=== PATIENT | male | born 1985 | race Caucasian/White ===

== ENCOUNTER 2017-01-12 17:30 | Emergency (ER) | payer MEDICAID ==
[~2017-01-12] VITALS: Ht 172.7 cm; Wt 86.2 kg
[~2017-01-12 17:30] MED LIST: ACHD5005 PO; ALBU17AE3 IH; CLNZ.5T PO; CYCL10TA45 PO; DIAZ5TAB PO; HYDR-700; LEVO750T39 PO; MULT-35 PO; OXYC-12 PO; PALI156D; PALI9TAB4; SENN1TAB76 PO; SULF-222 PO; SULF1TAB35 PO; TEST200V21 IM; TRAM300T24 PO; TRAM50TA2 PO; TRM50T PO
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
[2017-01-12] MEDS ORDERED: OLANZapine 5 MG ODT (ZyPREXA ZYDIS) PO ONE (18:15)
--- NOTE | 2017-01-12 19:12 | Diagnostic Imaging Report ---
PROCEDURE: CT head without contrast. TECHNIQUE: Multiple contiguous axial images were obtained through the brain without the use of intravenous contrast. INDICATION: Headache. FINDINGS: There is no mass, shift of the midline or hemorrhage to suggest an acute intracranial abnormality. The ventricles are not abnormally dilated and stable in size when compared to the prior exam of 09/07/15. The bone windows show no evidence for a fracture or for a destructive lesion. The orbits and sinuses were not visualized in their entirety, but where visualized, there is no sign of an acute abnormality. IMPRESSION: 1. There is no evidence for an acute intracranial abnormality. When compared to the prior study, there has been no significant change. 2. If clinical concern regarding an underlying abnormality persists, then MRI would be recommended for further study. Dictated by: Dictated on workstation # [id number]
[2017-01-12 19:25] VITALS: BP 115/78
== END 2017-01-12 19:23 | disposition home or self-care (01) ==
LOC: EDUNIT# 17:30 → ER 17:32
DX: R51 Headache (principal); I10 Essential (primary) hypertension; F15.90 Other stimulant use, unspecified, uncomplicated; F17.210 Nicotine dependence, cigarettes, uncomplicated
CPT/HCPCS: 70450; 99282

== ENCOUNTER 2017-03-08 20:52 | Emergency (ER) | payer MEDICAID ==
[~2017-03-08] VITALS: Ht 172.7 cm; Wt 86.4 kg
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
[2017-03-08] MEDS ORDERED: ALPRAZolam 0.5 MG (XANAX) TAB PO SCH (21:15)
[2017-03-08] MEDS: RT-LEVALBUTEROL (XOPENEX) 1.25 MG/3 ML NEB NON-FORMULARY INH SCH ×2 (21:17→21:18)
--- NOTE | 2017-03-08 21:23 | Diagnostic Imaging Report ---
INDICATION: Shortness of breath. PA and lateral views of the chest were obtained. FINDINGS: The heart size, mediastinal configuration, and pulmonary vascularity are within normal limits. There is no pleural effusion, pneumothorax, or pneumonia. The osseous structures are unremarkable. IMPRESSION: No acute cardiopulmonary abnormality. Dictated by: Dictated on workstation # [id number]
[2017-03-08 21:44] VITALS: BP 132/90
== END 2017-03-08 21:44 | disposition home or self-care (01) ==
LOC: EDUNIT# 20:52 → ER 20:54
DX: R06.00 Dyspnea, unspecified (principal); I10 Essential (primary) hypertension; F20.9 Schizophrenia, unspecified; F17.210 Nicotine dependence, cigarettes, uncomplicated; Z79.899 Other long term (current) drug therapy
CPT/HCPCS: 71020; 94640; 99283

== ENCOUNTER 2017-06-12 16:54 | Emergency (ER) | payer MEDICAID ==
[~2017-06-12] VITALS: Ht 172.7 cm; Wt 90.7 kg
--- OUTSIDE RECORDS SUMMARY | 2017-06-12 16:58 | XMS REPORT ---
Author Author YVONNE AIKEN Organization [facility] Address [address] [place] [address] Care Team Providers Care Hand Filer Balance Wheel Name Role Phone YVONNE AIKEN Unavailable PROBLEMS Unknown Problems ALLERGIES Substance Reaction Event Type Date Status N.K.D.A. Unknown Non Drug Allergy Aug, Unknown SOCIAL HISTORY No smoking Hx information available PLAN OF CARE Activity Details Follow Up prn Reason: VITAL SIGNS Height 69 in 2016-09-21 Weight 189.2 lbs 2016-09-21 Temperature 98.6 degrees Fahrenheit 2016-09-21 Heart Rate 104 bpm 2016-09-21 Respiratory Rate 20 2016-09-21 BMI 27.94 kg/m2 2016-09-21 Blood pressure systolic 136 mmHg 2016-09-21 Blood pressure diastolic 84 mmHg 2016-09-21 MEDICATIONS Medication Instructions Dosage Frequency Start Date End Date Duration Status Cephalexin 500 MG Orally three times daily 1 capsule Aug,Sep 10 day(s) Active RESULTS No Results PROCEDURES Procedure Date Ordered Related Diagnosis Body Site ROCEPHIN 1 GM (IM) Sep 21, 2016 THER/PROPH/DIAG INJ, SC/IM Sep 21, 2016 Office Visit, Est Pt., Level 3 Sep 21, 2016 IMMUNIZATIONS Vaccine Route Administration Date Status ROCEPHIN 1 GM (IM) IM Intramuscular Sep 21, 2016 Administered
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
[2017-06-12] MEDS ORDERED: OLANZapine 5 MG ODT (ZyPREXA ZYDIS) PO ONE ×2 (17:15→18:15)
[2017-06-12 17:47] LABS: BILIRUBIN,URINE NEGATIVE (NEGATIVE); KETONES,URINE NEGATIVE (NEGATIVE); LEUKOCYTE ESTERASE ,URINE NEGATIVE (NEGATIVE); NITRITE,URINE NEGATIVE (NEGATIVE); PH,URINE 6 (5-9); PROTEIN,URINE 1+ (NEGATIVE); UROBILINOGEN,URINE NORMAL (NORMAL)
[2017-06-12 17:48] LABS: BASOPHILS # (AUTO) 0.1 10^3/uL (0.0-0.1); BASOPHILS % (AUTO) 1 % (0-10); EOSINOPHILS # (AUTO) 0.1 10^3/uL (0.0-0.3); EOSINOPHILS % (AUTO) 1 % (0-10); LYMPHOCYTES # (AUTO) 2.4 X 10^3 (1.0-4.0); LYMPHOCYTES % (AUTO) 24 % (12-44); MEAN CORPUSCULAR HEMOGLOBIN 30 PG (25-34); MEAN CORPUSCULAR HGB CONC 35 G/DL (32-36); MEAN CORPUSCULAR VOLUME 87 FL (80-99); MEAN PLATELET VOLUME 11.5 FL (7.4-10.4); MONOCYTES # (AUTO) 1.2 X 10^3 (0.0-1.0); MONOCYTES % (AUTO) 12 % (0-12); NEUTROPHILS # (AUTO) 6.3 X 10^3 (1.8-7.8); NEUTROPHILS % (AUTO) 62 % (42-75); PLATELET COUNT 289 10^3/uL (130-400); RED BLOOD COUNT 5.49 10^6/uL (4.35-5.85); RED CELL DISTRIBUTION WIDTH 13.4 % (10.0-14.5); WHITE BLOOD COUNT 10.2 10^3/uL (4.3-11.0)
[2017-06-12 18:31] LABS: ALANINE AMINOTRANSFERASE 20 U/L (0-55); ALBUMIN 4.4 GM/DL (3.2-4.5); ALCOHOL < 10 MG/DL (<10); ANION GAP 11 MMOL/L (5-14); ASPARTATE AMINO TRANSFERASE 13 U/L (5-34); BILIRUBIN,TOTAL 0.3 MG/DL (0.1-1.0); BLOOD UREA NITROGEN 7 MG/DL (7-18); BUN/CREATININE RATIO 6; CALCIUM 9.5 MG/DL (8.5-10.1); CARBON DIOXIDE 26 MMOL/L (21-32); CHLORIDE 103 MMOL/L (98-107); GFR ESTIMATED > 60; GLUCOSE 104 MG/DL (70-105); POTASSIUM 3.8 MMOL/L (3.6-5.0); SALICYLATE < 5.0 MG/DL (5.0-20.0); SODIUM 140 MMOL/L (135-145); TOTAL PROTEIN 7.7 GM/DL (6.4-8.2)
[2017-06-12 18:33] LABS: ACETAMINOPHEN < 10 UG/ML (10-30)
[2017-06-12 18:50] LABS: THYROID STIMULATING HORMONE 0.81 UIU/ML (0.35-4.94)
[2017-06-12 19:35] VITALS: BP 137/99
== END 2017-06-12 19:33 | disposition home or self-care (01) ==
LOC: EDUNIT# 16:54 → ER 16:55
DX: F15.10 Other stimulant abuse, uncomplicated (principal); F29 Unspecified psychosis not due to a substance or known physiological condition
CPT/HCPCS: 36415; 80053; 80306; 80320; 80329; 81000; 84443; 85025; 93005

== ENCOUNTER 2019-01-18 08:42 | Observation (INO) | payer MEDICAID, MEDICARE ==
[2019-01-18] VITALS (11 sets, daily range): BP systolic 96–150; BP diastolic 48–92
[~2019-01-18] VITALS: Ht 170.2 cm; Wt 79.4 kg
[2019-01-18] MEDS ORDERED: NS IV 1000 ML 1,000 ML IV ONE ×2 (09:09→10:16)
[2019-01-18] MEDS ORDERED: QUEtiapine 25 MG (SEROquel) TAB IMMEDIATE RELEASE PO SCH ×2 (09:15→13:00)
[2019-01-18 09:16] LABS: BASOPHILS % (AUTO) 0 % (0-10); EOSINOPHILS % (AUTO) 0 % (0-10); HEMATOCRIT 45 % (40-54); HEMOGLOBIN 16.2 G/DL (13.3-17.7); LYMPHOCYTES # (AUTO) 1.5 X 10^3 (1.0-4.0); LYMPHOCYTES % (AUTO) 7 % (12-44); MEAN CORPUSCULAR HEMOGLOBIN 30 PG (25-34); MEAN CORPUSCULAR HGB CONC 36 G/DL (32-36); MEAN CORPUSCULAR VOLUME 84 FL (80-99); MEAN PLATELET VOLUME 11.3 FL (7.4-10.4); MONOCYTES % (AUTO) 10 % (0-12); NEUTROPHILS % (AUTO) 83 % (42-75); PLATELET COUNT 236 10^3/uL (130-400); RED CELL DISTRIBUTION WIDTH 12.8 % (10.0-14.5); WHITE BLOOD COUNT 20.4 10^3/uL (4.3-11.0)
[2019-01-18 09:38] LABS: LYMPHOCYTES % (MANUAL) 9 %; MONOCYTES % (MANUAL) 10 %; NEUTROPHILS % (MANUAL) 81 %; RBC MORPH NORMAL
[2019-01-18 09:39] LABS: ACETAMINOPHEN < 10 UG/ML (10-30); ALANINE AMINOTRANSFERASE 41 U/L (0-55); ALBUMIN 4.9 GM/DL (3.2-4.5); ALKALINE PHOSPHATASE 84 U/L (40-136); BUN/CREATININE RATIO 20; CALCIUM 9.7 MG/DL (8.5-10.1); CARBON DIOXIDE 23 MMOL/L (21-32); CHLORIDE 103 MMOL/L (98-107); CREATINE KINASE 2222 U/L (30-200); CREATININE SERUM 1.02 MG/DL (0.60-1.30); GFR ESTIMATED > 60; GLUCOSE 168 MG/DL (70-105); MAGNESIUM 2.8 MG/DL (1.8-2.4); POTASSIUM 3.6 MMOL/L (3.6-5.0); SALICYLATE < 5.0 MG/DL (5.0-20.0); SODIUM 140 MMOL/L (135-145)
[2019-01-18 09:58] LABS: TSH (THYROID ANALYZER) 1.74 UIU/ML (0.35-4.94)
--- NOTE | 2019-01-18 10:20 | NUR ---
PT STATES HAS BEEN DRINKING POND WATER AND CLEAR FLUID IN DR PEPPER BOTTLE FOUND ON ROAD
--- NOTE | 2019-01-18 10:44 | Diagnostic Imaging Report ---
Indication: Rhabdomyolysis, elevated white blood cell count. Comparison: 03/08/2017 Technique: Single radiograph of the chest dated 01/18/2019. Findings: The cardiac silhouette is within normal limits in size. No significant pulmonary vascular congestion. The lungs are clear, focal pulmonary opacity. No pleural effusion. No pneumothorax. No acute osseous abnormality. Impression: Stable examination without acute cardiopulmonary abnormality. Dictated by: Dictated on workstation # [id number]
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
--- NOTE | 2019-01-18 11:24 | NUR ---
LUNCH TRAY ORDERED
[2019-01-18 11:47] LABS: BILIRUBIN,URINE NEGATIVE (NEGATIVE); CLARITY,URINE CLEAR; COLOR,URINE YELLOW; GLUCOSE, URINE (UA) 2+ (NEGATIVE); KETONES,URINE 3+ (NEGATIVE); LEUKOCYTE ESTERASE ,URINE NEGATIVE (NEGATIVE); NITRITE,URINE NEGATIVE (NEGATIVE); PH,URINE 6 (5-9); PROTEIN,URINE NEGATIVE (NEGATIVE); UROBILINOGEN,URINE NORMAL (NORMAL)
[2019-01-18 11:56] LABS: BACTERIA,URINE NEGATIVE /HPF; SQUAMOUS EPITHELIAL CELL,UR RARE /HPF
[2019-01-18 12:01] LABS: AMPHETAMINE SCREEN, URINE POSITIVE (NEGATIVE); BARBITURATE SCREEN URINE NEGATIVE (NEGATIVE); BENZODIAZEPINES SCREEN URINE NEGATIVE (NEGATIVE); CANNABINOID SCREEN, URINE NEGATIVE (NEGATIVE); COCAINE SCREEN URINE NEGATIVE (NEGATIVE); METHADONE STAT NEGATIVE (NEGATIVE); METHAMPHETAMINE SCREEN URINE S POSITIVE (NEGATIVE); OPIATE SCREEN URINE NEGATIVE (NEGATIVE); OXYCODONE STAT NEGATIVE (NEGATIVE); PROPOXYPHENE STAT NEGATIVE (NEGATIVE); TRICYCLIC ANTIDEPRESSANTS SCRE NEGATIVE (NEGATIVE)
--- NOTE | 2019-01-18 12:03 | NUR ---
PT INST TO KEEP R ARM STRAIGHT OR WILL HAVE TO RESTART IV ANOTHER PLACE, HAVE REQUESTED PT KEEP R ARM ST
[2019-01-18] MEDS ORDERED: QUEtiapine 100 MG (SEROquel) TAB IMMEDIATE RELEASE PO ONE (13:00)
[2019-01-18] MEDS ORDERED: NS IV 1000 ML 1,000 ML ONE (13:23)
[2019-01-18] MEDS ORDERED: ONDANSETRON 4 MG/2 ML (SDV) Z0FRAN IV PRN (13:45)
[2019-01-18] MEDS: NS IV 1000 ML 1,000 ML IV SCH ×2 (13:50→21:36)
[2019-01-18] MEDS: ACETAMINOPHEN 500 MG TAB (TYLENOL) PO PRN (19:51)
[2019-01-18] MEDS: QUEtiapine 200 MG (SEROquel) TAB IMMEDIATE RELEASE PO SCH (21:36)
[2019-01-19] VITALS (16 sets, daily range): BP systolic 93–121; BP diastolic 48–81
[2019-01-19 03:32] LABS: BASOPHILS # (AUTO) 0.1 10^3/uL (0.0-0.1); BASOPHILS % (AUTO) 1 % (0-10); EOSINOPHILS # (AUTO) 0.1 10^3/uL (0.0-0.3); EOSINOPHILS % (AUTO) 2 % (0-10); HEMATOCRIT 38 % (40-54); HEMOGLOBIN 13.3 G/DL (13.3-17.7); LYMPHOCYTES # (AUTO) 2.2 X 10^3 (1.0-4.0); LYMPHOCYTES % (AUTO) 32 % (12-44); MEAN CORPUSCULAR HEMOGLOBIN 30 PG (25-34); MEAN CORPUSCULAR HGB CONC 35 G/DL (32-36); MEAN CORPUSCULAR VOLUME 86 FL (80-99); MEAN PLATELET VOLUME 11.7 FL (7.4-10.4); MONOCYTES # (AUTO) 0.9 X 10^3 (0.0-1.0); MONOCYTES % (AUTO) 12 % (0-12); NEUTROPHILS # (AUTO) 3.6 X 10^3 (1.8-7.8); NEUTROPHILS % (AUTO) 53 % (42-75); PLATELET COUNT 170 10^3/uL (130-400); RED CELL DISTRIBUTION WIDTH 12.8 % (10.0-14.5); WHITE BLOOD COUNT 6.9 10^3/uL (4.3-11.0)
[2019-01-19 03:57] LABS: ALANINE AMINOTRANSFERASE 26 U/L (0-55); ALBUMIN 3.4 GM/DL (3.2-4.5); ALKALINE PHOSPHATASE 63 U/L (40-136); BILIRUBIN,TOTAL 0.3 MG/DL (0.1-1.0); BUN/CREATININE RATIO 12; CALCIUM 7.7 MG/DL (8.5-10.1); CARBON DIOXIDE 21 MMOL/L (21-32); CHLORIDE 115 MMOL/L (98-107); CREATINE KINASE 922 U/L (30-200); CREATININE SERUM 0.86 MG/DL (0.60-1.30); GFR ESTIMATED > 60; GLUCOSE 100 MG/DL (70-105); MAGNESIUM 2.2 MG/DL (1.8-2.4); PHOSPHORUS 2.7 MG/DL (2.3-4.7); POTASSIUM 3.5 MMOL/L (3.6-5.0); SODIUM 142 MMOL/L (135-145); TOTAL PROTEIN 5.5 GM/DL (6.4-8.2)
[2019-01-19] MEDS ORDERED: KCL 20 MEQ TAB (K-DUR) PO SCH (06:00)
[2019-01-19] MEDS ORDERED: MAGNESIUM 1 GM/100 ML IVPB 100 ML IV SCH (06:00)
[2019-01-19] MEDS ORDERED: POTASSIUM CL 10MEQ/50ML IVPB 50 ML IV SCH (06:00)
[2019-01-19] MEDS: NS IV 1000 ML 1,000 ML IV SCH ×2 (06:35→09:07)
[2019-01-19] MEDS: QUEtiapine 200 MG (SEROquel) TAB IMMEDIATE RELEASE PO SCH (08:06)
[2019-01-19] MEDS: ACETAMINOPHEN 500 MG TAB (TYLENOL) PO PRN (08:07)
[2019-01-19] MEDS ORDERED: KCL 20 MEQ TAB (K-DUR) PO ONE (09:00)
[2019-01-19] MEDS ORDERED: QUET200T PO (09:55)
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
== END 2019-01-19 09:55 | disposition home or self-care (01) ==
LOC: EDUNIT# 08:42 → ER 08:44 → ICU 12:52 → UNDOADMOB 12:52 → ICU 14:00 → UNDODISOB 01-19 16:15
PROVIDERS: ADMIT Internal Medicine; ATTEND Internal Medicine
DX: N17.9 Acute kidney failure, unspecified (principal); E86.0 Dehydration; F15.188 Other stimulant abuse with other stimulant-induced disorder; F31.9 Bipolar disorder, unspecified; K21.9 Gastro-esophageal reflux disease without esophagitis; K44.9 Diaphragmatic hernia without obstruction or gangrene; K22.70 Barrett's esophagus without dysplasia; F20.0 Paranoid schizophrenia; L55.9 Sunburn, unspecified; D72.829 Elevated white blood cell count, unspecified; Z88.0 Allergy status to penicillin; Z79.899 Other long term (current) drug therapy
CPT/HCPCS: 36415; 71045; 80053; 80306; 80320; 80329; 81000; 82550; 83735; 84100; 84443; 85007; 85025; 85027; 87081; 93005; G0378